=== PATIENT | male | born 1945 | race Hispanic/Latino ===

== ENCOUNTER → 2018-01-29 | Outpatient (CLI) | payer MEDICARE, BC ==
[~2018-01-29] MED LIST: ATENOLOL25 MG PO; BACLOFEN10 MG PO; BUSPIRONE HCL15 MG PO; CARISOPRODOL350 MG PO; CELEBREX200 MG PO; DEXILANT60 MG PO; DOXAZOSIN MESYLA8 MG PO; DOXYCYCLINE MO100 MG PO; GABAPENTIN300 MG PO; IMODIUM2 MG PO; LORAZEPAM2 MG PO; METOCLOPRAMIDE H5 MG PO; NORCO 10-325 T1 EACH PO; PAROXETINE HCL20 MG PO; PERCOCET 10-321 EACH PO; PLAVIX75 MG PO; RANITIDINE HCL300 MG PO; ROPINIROLE HCL4 MG PO; SERTRALINE HCL50 MG PO; SUCRALFATE1 GM PO; SULFAMETHOXAZO1 EAC1 PO; TERAZOSIN HCL1 MG PO; TIZANIDINE HCL4 MG PO; TRIAMTERENE PO; TRIAMTERENE-HC1 EAC2 PO; ULTRACET TABLE1 EACH PO; VASOTEC5 MG PO; ZOLOFT100 MG PO; ZOLPIDEM TARTRA10 MG PO
--- NOTE | 2018-01-29 11:15 | Diagnostic Imaging Report ---
PROCEDURE:URINARY BLADDER ULTRASOUND COMPARISON:None. INDICATIONS:OTHER SPECIFIED URINARY INCONTINENCE CONCLUSION: Please refer to the retroperitoneal ultrasound performed at the same date and time for full dictated report. Dictated by: Xavier Albert M.D. on 01/29/2018 at 11:17 Electronically approved by: Xavier Albert M.D. on 01/29/2018 at 11:17
--- NOTE | 2018-01-29 11:23 | Diagnostic Imaging Report ---
PROCEDURE:US RETROPERITONEAL ( KIDNEY ). COMPARISON:None available. INDICATIONS:URINARY INCONTINENCE TECHNIQUE: Collier-scale and color sonographic images of the bilateral kidneys and bladder where obtained in transverse and longitudinal planes. FINDINGS: RIGHT KIDNEY: 11.2 cm, cortex 1.6 cm Cysts: None. Solid masses: None. Stones: None. Hydronephrosis: None. Echogenicity: Normal. LEFT KIDNEY: 11.3 cm, cortex 1.3 cm Cysts: None. Solid masses: None. Stones: None. Hydronephrosis: None. Echogenicity: Normal. Bladder: Normal contour. Bilateral ureteral jets are visualized. Prevoid volume 51.9 cc. Post void volume 0 cc. Prostate: 3.9 x 2.4 x 2.8 cm. Volume 13.2 cc CONCLUSION: No acute sonographic abnormality. Dictated by: Xavier Albert M.D. on 01/29/2018 at 11:24 Electronically approved by: Xavier Albert M.D. on 01/29/2018 at 11:24
== END ==
LOC: US 09:16
PROVIDERS: ATTEND Family Medicine
DX: N39.498 Other specified urinary incontinence (principal)
CPT/HCPCS: 76770; 76857

== ENCOUNTER 2019-08-08 19:44 | Emergency (ER) | payer BC, MEDICARE, OTHER ==
[~2019-08-08] VITALS: Ht 172.7 cm; Wt 107.5 kg
--- OUTSIDE RECORDS SUMMARY | 2019-08-08 19:48 | XMS REPORT ---
[facility] Address Unknown Phone Unavailable Care Team Providers Care Cook Box Filler Name Role Phone KAMILLA LONGORIA Unavailable Unavailable Problems This patient has no known problems. Allergies, Adverse Reactions, Alerts This patient has no known allergies or adverse reactions. Medications This patient has no known medications. Results Test Description Test Time Test Comments Text Results Atomic Results Result Comments US PELVIC (NON OB) PERSAUD OR F/U [place] [address] Patient Name: ROCIO SEVERINO MR #: [id number] : 1945 Age/Sex: 72/M Req #: [id number] Adm Physician: Ordered by: KAMILLA LONGORIA MD Report #: [id number] Location: US Room/Bed: Procedure: [id number] US/US PELVIC (NON OB) PERSAUD OR F/U Exam Date: Exam Time: REPORT STATUS: Signed PROCEDURE: URINARY BLADDER ULTRASOUND COMPARISON: None. INDICATIONS: OTHER SPECIFIED URINARY INCONTINENCE CONCLUSION: Please refer to the retroperitoneal ultrasound performed at the same date and time for full dictated report. Dictated by: Celso Rice M.D. on 01/29/2018 at 11:17 Electronically approved by: Celso Rice M.D. on 01/29/2018 at 11:17 Dictated By: CELSO RICE MD 1117 Transcribed By: AMBER on 01/29/181116 COPY TO: KAMILLA LONGORIA MD US RENAL RETROPERITONEAL COMP [place] [address] Patient Name: ROCIO SEVERINO MR #: [id number] : 1945 Age/Sex: 72/M Req #: [id number] Adm Physician: Ordered by: KAMILLA LONGORIA MD Report #: [id number] Location: US Room/Bed: Procedure: [id number] US/US RENAL RETROPERITONEAL COMP Exam Date: Exam Time: REPORT STATUS: Signed PROCEDURE: US RETROPERITONEAL ( KIDNEY ). COMPARISON: None available. INDICATIONS: URINARY INCONTINENCE TECHNIQUE: Collier-scale and color sonographic images of the bilateral kidneys and bladder where obtained in transverse and longitudinal planes. FINDINGS: RIGHT KIDNEY: 11.2 cm, cortex 1.6 cm Cysts: None. Solid masses: None. Stones: None. Hydronephrosis: None. Echogenicity: Normal. LEFT KIDNEY: 11.3 cm, cortex 1.3 cm Cysts: None. Solid masses: None. Stones: None. Hydronephrosis: None. Echogenicity: Normal. Bladder: Normal contour. Bilateral ureteral jets are visualized. Prevoid volume 51.9 cc. Post void volume 0 cc. Prostate: 3.9 x 2.4 x 2.8 cm. Volume 13.2 cc CONCLUSION: No acute sonographic abnormality. Dictated by: Celso Rice M.D. on 01/29/2018 at 11:24 Electronically approved by: Celso Rice M.D. on 01/29/2018 at 11:24 Dictated By: CELSO RICE MD 23 Transcribed By: AMBER on 01/29/181123 COPY TO: KAMILLA LONGORIA MD
[2019-08-08] MEDS ORDERED: DIPHENHYDRAMINE HCL 25 MG CAP PO ONE (20:00)
[2019-08-08] MEDS ORDERED: DEXAMETHASONE SOD PHOS 10 MG/1 ML VIAL IM ONE (20:00)
[2019-08-08] MEDS ORDERED: FAMOTIDINE 20 MG TAB PO ONE (20:00)
[2019-08-08 20:25] VITALS: BP 148/89
== END 2019-08-08 20:26 | disposition home or self-care (01) ==
LOC: ER 19:44
DX: L23.9 Allergic contact dermatitis, unspecified cause (principal); K21.9 Gastro-esophageal reflux disease without esophagitis; F32.9 Major depressive disorder, single episode, unspecified
CPT/HCPCS: 99282; J1100

== ENCOUNTER 2020-02-24 15:10 | Emergency (ER) | payer MEDICARE ==
[~2020-02-24] VITALS: Ht 172.7 cm; Wt 107.5 kg
--- OUTSIDE RECORDS SUMMARY | 2020-02-24 15:14 | XMS REPORT | Continuity of Care Document ---
Author Author [facility] Address [address] [place] [address] [address] [place] [address] Phone Unavailable Care Team Providers Care Rn Private Duty Name Role Phone KAMILLA LONGORIA MD PCP KAMILLA LONGORIA Attphys Unavailable Payers Payer Name Policy Type Policy Number Effective Date Expiration Date [facility] [id number] 2014 00:00:00 [facility] Medicare A & B [id number] 2009 00:00:[address] [facility] Ppo [id number] [facility] Miscellaneous [facility] [id number] [facility] [id number] [facility] Problems Condition Name Condition Details Condition Category Status Onset Date Resolution Date Last Treatment Date Treating Clinician Comments Source Acute renal failure Acute renal failure Problem Active 2016-03-29 00:00 :00 [facility] Dehydration Dehydration Problem Active 2016-03-29 00:00:00 [facility] Diarrhea Diarrhea Problem Active 2016-03-29 00:00:00 [facility] Hyperkalemia Hyperkalemia Problem Active 2016-03-29 00:00:00 [facility] Rhabdomyolysis Rhabdomyolysis Problem Active 2016-03-29 00:00:00 [facility] Allergies, Adverse Reactions, Alerts This patient has no known allergies or adverse reactions. Medications Ordered Medication Name Filled Medication Name Start Date Stop Da te Current Medication? Ordering Clinician Indication Dosage Frequency Signature (SIG) Comments Components Source Atenolol 25 Mg Tablet Atenolol 25 Mg Tablet Yes 25 Bedtime [facility] Baclofen 10 Mg Tablet Baclofen 10 Mg Tablet Yes 10 Every 8 Hours [facility] Buspirone Hcl 15 Mg Tablet Buspirone Hcl 15 Mg Tablet Yes 7.5 Twice A Day [facility] Carisoprodol 350 Mg Tablet Carisoprodol 350 Mg Tablet Yes 350 Three Times A Day [facility] Clopidogrel Bisulfate (Plavix) 75 Mg Tablet Clopidogre l Bisulfate (Plavix) 75 Mg Tablet Yes 75 Daily [facility] Doxycycline Monohydrate 100 Mg Capsule Doxycycline Monohydrate 1 00 Mg Capsule Yes 100 Twice A Day [facility] Enalapril Maleate (Vasotec) 5 Mg Tab Enalapril Maleate (Vasotec) 5 Mg Tab Yes 5 Bedtime [facility] Gabapentin 300 Mg Capsule Gabapentin 300 Mg Capsule Yes 300 Twice A Day [facility] Loperamide Hcl (Imodium*) 2 Mg Cap Loperamide Hcl (Imodium*) 2 Mg Cap Yes 2 [facility] Lorazepam 2 Mg Tablet Lorazepam 2 Mg Tablet Yes 2 Twice A Day [facility] Oxycodone Hcl/Acetaminophen (Percocet 10-325 Mg Tablet ) 1 Each Tablet Oxycodone Hcl/Acetaminophen (Percocet 10-325 Mg Tablet) 1 Each Tablet Yes 1 Every 6 Hours [facility] Paroxetine Hcl 20 Mg Tablet Paroxetine Hcl 20 Mg Tablet Yes 20 Twice A Day [facility] Ranitidine Hcl 300 Mg Tablet Ranitidine Hcl 300 Mg Tablet Y es 300 Bedtime [facility] Ropinirole Hcl 4 Mg Tablet Ropinirole Hcl 4 Mg Tablet Yes 4 Bedtime [facility] Sertraline Hcl 50 Mg Tablet Sertraline Hcl 50 Mg Tablet Yes 50 Daily [facility] Sulfamethoxazole/Trimethoprim (Sulfamethoxazole-Tmp Ds Tablet) 1 Each Tablet Sulfamethoxazole/Trimethoprim (Sulfamethoxazole-Tmp Ds Tablet) 1 Each Tablet Yes 1 Twice A Day [facility] Terazosin Hcl 1 Mg Capsule Terazosin Hcl 1 Mg Capsule Yes 1 Daily [facility] Triamterene/Hydrochlorothiazid (Triamterene-Hctz 37.5- 25 Mg Cp) 1 Each Capsule Triamterene/Hydrochlorothiazid (Triamterene-Hctz 37.5-25 Mg Cp) 1 Each Capsule Yes 1 Daily [facility] Zolpidem Tartrate 10 Mg Tablet Zolpidem Tartrate 10 Mg Tablet Yes 10 Bedtime [facility] Celecoxib (Celebrex) 200 Mg Capsule, 200 Mg Oral Celec oxib (Celebrex) 200 Mg Capsule, 200 Mg Oral 2016-03-28 00:00:00 No 200 Jaky ry Other Day [facility] Dexlansoprazole (Dexilant) 60 Mg Cap., 60 Mg Oral Dexlansoprazole (Dexilant) 60 Mg Cap., 60 Mg Oral 2016-03-28 00:00:00 No 60 Three Times A Day [facility] Doxazosin Mesylate 8 Mg Tablet, 8 Mg Oral Doxazosin Me sylate 8 Mg Tablet, 8 Mg Oral 2016-03-28 00:00:00 No 8 Bedtime [facility] Hydrocodone Bit/Acetaminophen ([place] 10-325 Tablet) 1 Each Tablet, Oral Hydrocodone Bit/Acetaminophen ([place] 10-325 Tablet) 1 Each Tablet, Oral 2016-03-28 00:00:00 No As Needed [facility] Metoclopramide Hcl 5 Mg Tablet, 5 Mg Oral Metocloprami de Hcl 5 Mg Tablet, 5 Mg Oral 2016-03-28 00:00:00 No 5 Three Times A Day [facility] Sertraline Hcl (Zoloft) 100 Mg Tablet, 100 Mg Oral Ser traline Hcl (Zoloft) 100 Mg Tablet, 100 Mg Oral 2016-03-28 00:00:00 No 100 B edtime [facility] Sucralfate 1 Gm Tablet, 1 Gm Oral Sucralfate 1 Gm Tablet, 1 Gm O ral 2016-03-28 00:00:00 No 1 Every 6 Hours C [facility] Tizanidine Hcl 4 Mg Tablet, 4 Mg Oral Tizanidine Hcl 4 Mg Tablet , 4 Mg Oral 2016-03-28 00:00:00 No 4 As Needed [facility] Tramadol Hcl/Acetaminophen (Ultracet Tablet) 1 Each Ta blet, Oral Tramadol Hcl/Acetaminophen (Ultracet Tablet) 1 Each Tablet, Oral 20 07-04-06 00:00:00 No Every 4 Hours for Pain C [facility] Triamterene , 25 Mg Oral Triamterene , 25 Mg Oral 2016-03-28 00: 00:00 No 25 Every Other Day [facility] Procedures This patient has no known procedures. Encounters Start Date/Time End Date/Time [facility] ID Source 2019-08-08 19:44:00 2019-08-08 20:26:00 Departed Emergency Room [facility] [id number] [facility] Results Test Description Test Time Test Comments Results Result Comments Source US PELVIC (NON OB) PERSAUD OR F/U [place] [address] Patient Name: ROCIO SEVERINO MR #: [id number] : 1945 Age/Sex: 72/M Req #: [id number] Adm Physician: Ordered by: KAMILLA LONGORIA MD Report #: [id number] Location: US Room/Bed: Procedure: [id number] US/US PELVIC (NON OB) PERSAUD OR F/U [...] at 11:17 Dictated By: CELSO RICE MD 16 Transcribed By: AMBER on 01/29/18 1117 COPY TO: KAMILLA LONGORIA MD US RENAL RETROPERITONEAL COMP [place] [address] Patient Name: ROCIO SEVERINO MR #: [id number] : 1945 Age/Sex: 72/M Req #: [id number] Adm Physician: Ordered by: KAMILLA LONGORIA MD Report #: [id number] Location: US Room/Bed: Procedure: [id number] US/US RENAL RETROPERITONEAL COMP Exam Date: Exam [...] at 11:24 Dictated By: CELSO RICE MD 1124 Transcribed By: AMBER on 01/29/18 1124 COPY TO: KAMILLA LONGORIA MD
--- NOTE | 2020-02-24 19:07 | Diagnostic Imaging Report ---
Examination: CT BRAIN WO CONTRAST History:Fall with head injury. Comparison studies:None Technique: Axial images were obtained from the skull base to the vertex. Coronal and sagittal images reconstructed from the axial data. Dose modulation, iterative reconstruction, and/or weight based adjustment of the mA/kV was utilized to reduce the radiation dose to as low as reasonably achievable. Intravenous contrast: None Findings: Scalp: No abnormalities. Bones: No fractures, blastic or lytic lesions. Brain sulci: Appropriate for age. Ventricles: Normal in size and configuration. No hydrocephalus. Extra-axial space: No abnormalities. Parenchyma: There are patchy areas of hypoattenuation in the periventricular and subcortical white matter, nonspecific. No masses, hemorrhage, or acute or chronic cortical based vascular insults. Sellar/suprasellar region: No abnormalities. Craniocervical junction: Patent foramen magnum. No Chiari one malformation. Incidental findings: Atherosclerotic calcification of the cavernous and supraclinoid internal carotid arteries. Opacification of the right frontal and partially visualized right maxillary sinus. Impression: No acute intracranial abnormalities. Chronic microvascular ischemic change. Signed by: Dr. Rina Brothers M.D. on 02/24/2020 7:04 PM
--- NOTE | 2020-02-24 19:14 | Diagnostic Imaging Report ---
Examination: CT CERVICAL SPINE WO CONTRAST HISTORY:Neck injury and pain after fall. COMPARISON:None. TECHNIQUE: Multidetector helical axial images were obtained without contrast from the foramen magnum to T1. Coronal and sagittal reformatted images were done. Bone and soft tissue windows were evaluated. Dose modulation, iterative reconstruction, and/or weight based adjustment of the mA/kV was utilized to reduce the radiation dose to as low as reasonably achievable. FINDINGS: Alignment:Straightening of normal lordosis. Vertebrae: Normal height and density. No acute fracture, infection or neoplasm. Disc space heights: Narrowed from C4 through T1. Caliber of spinal canal: Developmentally normal. Posterior fossa and craniocervical junction: Foramen magnum patent. No Chiari 1 malformation. Soft tissues: No abnormality. Degenerative changes: Grade I anterolisthesis of C4 on C5 with left uncovertebral and facet arthropathy with severe left foraminal narrowing. C5-C6: Asymmetric to the right disc osteophyte complex and bilateral uncovertebral arthropathy with severe right and mild left neural foraminal narrowing. No canal stenosis. C6-C7: Asymmetric to the right disc osteophyte complex and bilateral uncovertebral arthropathy result in severe right and moderate left neural foraminal narrowing. No canal stenosis. The remaining cervical levels demonstrate no disc herniation or foraminal or canal stenosis. Visualized lung apices: No abnormalities. IMPRESSION: 1. No acute abnormalities. 2. Degenerative changes as above. Signed by: Dr. Rina Brothers M.D. on 02/24/2020 7:10 PM
--- NOTE | 2020-02-24 19:19 | Diagnostic Imaging Report ---
KNEE THREE VIEWS BILATERAL - 3 views HISTORY: Pain status post fall. COMPARISON: None available. FINDINGS: Bones: No acute displaced fracture. Osseous alignment is within normal limits. Sclerosis of the patella. Joints: Total right knee arthroplasty with femoral and tibial components in adequate position and alignment. Soft tissues: Trace suprapatellar fluid. IMPRESSION: No acute osseous abnormality. Signed by: Dr. Brandee Louie M.D. on 02/24/2020 7:15 PM
--- NOTE | 2020-02-24 19:21 | Diagnostic Imaging Report ---
EXAMINATION: CHEST SINGLE (NOT PORTABLE) INDICATION: Fall. COMPARISON: None available in PACS at this time. FINDINGS: TUBES and LINES: None. LUNGS: Lungs are not well inflated. Mild elevation of the left hemidiaphragm. There is no evidence of pneumonia or pulmonary edema. PLEURA: No pleural effusion or pneumothorax. Thickening of the minor fissure. HEART AND MEDIASTINUM: Cardiac size is moderately enlarged. There is widening of the mediastinum with unfolded aorta, which may be part magnification by portable technique. BONES AND SOFT TISSUES: No acute osseous lesion. Soft tissues are unremarkable. UPPER ABDOMEN: No free air under the diaphragm. IMPRESSION: Suboptimal inflation with low lung volumes bilaterally, particularly on the left. Widening of the mediastinum may be related to portable technique and suboptimal inflation. Consider chest pain and lateral views when patient's condition permits. Signed by: Dr. Brandee Louie M.D. on 02/24/2020 7:18 PM
--- NOTE | 2020-02-24 19:35 | Diagnostic Imaging Report ---
EXAM: CT Abdomen and Pelvis WITHOUT contrast INDICATION: Pain status post fall. COMPARISON: None. TECHNIQUE: Abdomen and pelvis were scanned utilizing a multidetector helical scanner from the lung base to the pubic symphysis without administration of IV contrast. Absence of intravenous contrast decreases sensitivity for detection of focal lesions and vascular pathology. Coronal and sagittal reformations were obtained. Routine protocol was performed. IV CONTRAST: None. ORAL CONTRAST: Water RADIATION DOSE: Total DLP: 2148.17 mGy*cm Estimated effective dose: (DLP x 0.015 x size factor) mSv COMPLICATIONS: None FINDINGS: LINES and TUBES: None. LOWER THORAX: There is bibasilar atelectasis. Elevation of the left hemidiaphragm. Coronary artery calcifications particularly of the LAD. HEPATOBILIARY: No focal hepatic lesions. No biliary ductal dilation. GALLBLADDER: Cholecystectomy. SPLEEN: No splenomegaly. PANCREAS: Diffuse atrophy. No focal masses or ductal dilatation. ADRENALS: No adrenal nodules KIDNEYS/URETERS: No hydronephrosis. No cystic or solid mass lesions. No stones. Peroneal a cortical calcification in the upper pole of the right kidney laterally. GI TRACT: No abnormal distention, wall thickening, or evidence of bowel obstruction. There are diverticula within the colon without evidence of diverticulitis. Appendix is normal. PELVIC ORGANS/BLADDER: Unremarkable. LYMPH NODES: No lymphadenopathy. VESSELS: There is mild atherosclerotic disease in the aorta and major arterial branches. PERITONEUM / RETROPERITONEUM: No free air or fluid. BONES: There are multilevel advanced degenerative changes in the imaged lower thoracic and lumbar spine. L4 hemangioma. Dextroscoliosis. SOFT TISSUES: Postoperative changes of the supra umbilical abdominal wall with mesh without evidence of hernia recurrence. IMPRESSION: 1. No acute traumatic injury in the abdomen and pelvis allowing for limitations of lack of contrast. Signed by: Dr. Brandee Louie M.D. on 02/24/2020 7:31 PM
--- NOTE | 2020-02-24 21:01 | Diagnostic Imaging Report ---
History: Fall yesterday Comparison studies: None Technique: Axial images were obtained from T12 through the sacrum. Coronal and sagittal images reconstructed from the axial data. Intravenous contrast: None Dose modulation, iterative reconstruction, and/or weight based adjustment of the mA/kV was utilized to reduce the radiation dose to as low as reasonably achievable. Findings: Number of non-rib bearing vertebral bodies: 5 Alignment: Normal lordosis. Dextroscoliosis centered at L3. Soft tissues: No paraspinal abnormalities. Atherosclerotic calcifications of the abdominal aorta and branches Paraspinal muscles: Fatty infiltration of the left paraspinal musculature secondary to mild atrophy on the left. Vertebrae: No acute fractures hemangioma occupying most of the L4 vertebral body. Chronic loss height at L2 and L3 vertebral bodies towards the left (less than 20%). Degenerative changes: L1-L2: Disc degeneration with obliterated intervertebral space, vacuum disc phenomenon, and L2 superior endplates Schmorl nodes. Asymmetric left disc bulge and left facet hypertrophy results in moderate canal stenosis and moderate left foraminal narrowing L2-L3: Disc degeneration with obliterated intervertebral space and vacuum disc phenomenon. Asymmetric left disc bulge and moderate left facet hypertrophy results in moderate canal stenosis, obliteration of the left subarticular recess, mild right and severe left foraminal narrowing. L3-L4: Disc degeneration with obliterated intervertebral space and vacuum disc phenomenon asymmetric left disc bulge, and moderate bilateral facet hypertrophy results in severe canal stenosis and moderate bilateral foraminal narrowing L4-L5: Disc degeneration with decreased intervertebral space and vacuum disc phenomenon. Diffuse disc bulge and severe facet hypertrophy results in moderate to severe canal stenosis, severe right and moderate left foraminal narrowing L5-S1: Disc degeneration with decreased intervertebral space and vacuum disc phenomenon diffuse disc bulge, severe right and moderate left facet hypertrophy results in moderate canal stenosis and severe right and moderate left foraminal narrowing. Sacroiliac joints: No degenerative changes. IMPRESSION: 1. No acute abnormality of the lumbar spine. 2. Severe degenerative changes of the lumbar spine results in moderate to severe canal stenosis and moderate to severe foraminal narrowing as described above. Signed by: DR Rodrigo Us M.D. on 02/24/2020 8:57 PM
[2020-02-24 21:17] VITALS: BP 142/72
--- NOTE | 2020-02-24 21:22 | Emergency Department Note ---
History of Present Illnes History of Present Illness Chief Complaint: Multiple Trauma History of Present Illness This is a 74 year old male presents with c/o aching all over after tripping and falling yesterday, c/o pain from head to his buttocks, no loc, no nausea, vomiting, states he tripped over a pair of shoes next to his bed . Historian: Patient Arrival Mode: Car Onset (how long ago): day(s) (1) Location: all over Quality: pain and aches Severity: moderate Onset quality: sudden Duration (how long): day(s) (1) Timing of current episode: constant Progression: unchanged Chronicity: new Context: recent illness, recent surgery Relieving factors: none Exacerbating factors: none Associated symptoms: denies other symptoms Past Medical/Family History Physician Review I have reviewed the patient's past medical and family history. Any updates have been documented here. Past Medical History Recent Fever: No Clinical Suspicion of Infectio: No New/Unexplained Change in Ment: No Past Medical History: Hypertension Other Medical History: GERD, DEPRESSION, OSMAN Past Surgical History: Cholecysctectomy, Knee Replacement, Hernia Repair, Back Surgery Social History Smoking Cessation: Never Smoker Alcohol Use: None Any Illegal Drug Use: No Other Last Tetanus: UTD Review of Systems Review of Systems Constitutional: no symptoms EENTM: no symptoms Cardiovascular: no symptoms Respiratory: no symptoms Gastrointestinal: no symptoms Genitourinary: no symptoms Musculoskeletal: as per HPI Neurological: no symptoms Psychological: no symptoms Endocrine: no symptoms Hematological/Lymphatic: no symptoms Review of other systems All other systems reviewed and negative. Physical Exam Related Data Allergies: Coded Allergies: No Known Drug Allergies (Verified Allergy, Unknown, 07/07/10) Triage Vital Signs Vital Signs Date Time Temp Pulse Resp B/P (MAP) Pulse Ox O2 Delivery O2 Flow Rate FiO2 02/24/20 15:54 98.4 62 16 109/64 94 Vital signs reviewed: Yes Physical Exam CONSTITUTIONAL Constitutional: well-developed, well-nourished HENT HENT: normocephalic, oropharynx clear/moist, nose normal, other (contusion to back of head) HENT L/R: left ext ear normal, right ext ear normal EYES Eyes: PERRL, conjunctivae normal NECK Neck: ROM normal, other (pain with rom of neck, bilateral paraspinal muscle tenderness) PULMONARY Pulmonary: effort normal, breath sounds normal CARDIOVASCULAR Cardiovascular: regular rhythm, heart sounds normal, capillary refill normal, normal rate GASTROINTESTINAL Abdominal: soft, nontender, bowel sounds normal GENITOURINARY Genitourinary: exam deferred SKIN Skin: warm, dry, other (bruises to legs and arms) MUSCULOSKELETAL Musculoskeletal: ROM normal, other (bilateral paraspinal pain to lower back with movement and palpation) NEUROLOGICAL Neurological: alert, oriented x 3, no gross motor or sensory deficits PSYCHOLOGICAL Psychological: mood/affect normal, judgement normal Results Imaging Imaging results reviewed: Yes Imaging Comments no acute findings on any of imaging studies, pt with lots of chronic degenerative changes Critical Care Time Subsequent provider I assumed direction of critical care for this patient from another provider of my specialty. Assessment & Plan Assessment & Plan Final Impression: (1) CONTUSION OF UNSPECIFIED PART OF HEAD, INITIAL ENCOUNTER (2) SPRAIN OF LIGAMENTS OF CERVICAL SPINE, INITIAL ENCOUNTER (3) STRAIN OF MUSCLE, FASCIA AND TENDON OF LOWER BACK, INIT Assessment & Plan pt with pain all over after fall yesterday, hit head not loc ct brain , ct c spine, ct l spine, ct abd/pelvis cxr, ordered to eval for fractures, intracranial abnormality no acute findings on imaging studies pt discharged home Depart Disposition: HOME, SELF-CARE Last Vital Signs Date Time Temp Pulse Resp B/P (MAP) Pulse Ox O2 Delivery O2 Flow Rate FiO2 02/24/20 15:54 98.4 62 16 109/64 94 Home Meds Reported Medications Triamterene/Hydrochlorothiazid (TRIAMTERENE-HCTZ 37.5-25 MG CP) 1 Each Capsule, 1 TAB PO DAILY 03/28/16 Loperamide Hcl* (IMODIUM*) 2 Mg Cap, 2 MG PO, CAP 03/28/16 Paroxetine Hcl (PAROXETINE HCL) 20 Mg Tablet, 20 MG PO BID, #30 TAB 03/28/16 Doxycycline Monohydrate (DOXYCYCLINE MONOHYDRATE) 100 Mg Capsule, 100 MG PO BID 03/28/16 Baclofen (BACLOFEN) 10 Mg Tablet, 10 MG PO Q8HR, #90 TAB 03/28/16 Sulfamethoxazole/Trimethoprim (SULFAMETHOXAZOLE-TMP DS TABLET) 1 Each Tablet, 1 TAB PO BID 03/28/16 Carisoprodol (CARISOPRODOL) 350 Mg Tablet, 350 MG PO TID 03/28/16 Sertraline Hcl (SERTRALINE HCL) 50 Mg Tablet, 50 MG PO DAILY, #30 TAB 03/28/16 Terazosin Hcl (TERAZOSIN HCL) 1 Mg Capsule, 1 MG PO DAILY, #30 CAP 03/28/16 Gabapentin (GABAPENTIN) 300 Mg Capsule, 300 MG PO BID, #60 CAP 03/28/16 Oxycodone Hcl/Acetaminophen (PERCOCET 10-325 MG TABLET) 1 Each Tablet, 1 TAB PO Q6HR 03/28/16 Buspirone Hcl (BUSPIRONE HCL) 15 Mg Tablet, 7.5 MG PO BID 12/31/14 Enalapril Maleate (VASOTEC) 5 Mg Tab, 5 MG PO HS, TAB 12/31/14 Zolpidem Tartrate (ZOLPIDEM TARTRATE) 10 Mg Tablet, 10 MG PO BEDTIME, TAB 12/31/14 Atenolol (ATENOLOL) 25 Mg Tablet, 25 MG PO HS 12/31/14 Ropinirole Hcl (ROPINIROLE HCL) 4 Mg Tablet, 4 MG PO HS 12/31/14 Ranitidine Hcl (RANITIDINE HCL) 300 Mg Tablet, 300 MG PO HS 12/31/14 Clopidogrel Bisulfate* (PLAVIX) 75 Mg Tablet, 75 MG PO DAILY, TAB 12/31/14 Lorazepam (LORAZEPAM) 2 Mg Tablet, 2 MG PO BID 12/31/14 TONY LARA MD Feb 24, 2020 21:22
== END 2020-02-24 21:17 | disposition home or self-care (01) ==
LOC: ER 15:10
DX: S00.83XA Contusion of other part of head, initial encounter (principal); S13.4XXA Sprain of ligaments of cervical spine, initial encounter; S39.012A Strain of muscle, fascia and tendon of lower back, initial encounter; W01.0XXA Fall on same level from slipping, tripping and stumbling without subsequent striking against object, initial encounter; Y92.003 Bedroom of unspecified non-institutional (private) residence as the place of occurrence of the external cause; I10 Essential (primary) hypertension; K21.9 Gastro-esophageal reflux disease without esophagitis; F32.9 Major depressive disorder, single episode, unspecified
CPT/HCPCS: 70450; 71045; 72125; 72131; 72192; 74176; 99283

== ENCOUNTER → 2020-07-29 | Outpatient (CLI) | payer MEDICARE ==
--- NOTE | 2020-07-29 14:23 | Diagnostic Imaging Report ---
EXAM: US ABDOMEN COMPLETE DATE: 07/29/2020 12:37 PM INDICATION: Right upper quadrant pain COMPARISON: CT abdomen and pelvis of 02/24/2020 TECHNIQUE: Transverse and longitudinal galvez scale and color doppler sonographic images of the upper abdomen were obtained. FINDINGS: LIVER 18.3 cm in the right midclavicular line. Normal echogenicity of the liver with mildly nodular surface contour, no masses. SPLEEN 11.2 cm in maximum diameter. Normal echogenicity, no masses. GALLBLADDER Status post cholecystectomy. BILE DUCTS No intra nor extra-hepatic biliary dilation. Common bile duct measures 5mm PANCREAS: Visualized portions are normal. RIGHT KIDNEY: 10.7 cm Echogenicity: Normal Collecting System: No hydronephrosis Stones: None Cyst/Mass: None LEFT KIDNEY: 10.7 cm Echogenicity: Normal Collecting System: No hydronephrosis Stones: None Cyst/Mass: None VESSELS: Aorta: Visualized portions are within normal size limits Inferior Vena Cava: Visualized portions are normal Main Portal Vein: 0.8 cm, normal size with hepatopetal flow. FREE FLUID: None IMPRESSION: Nodular liver surface contour compatible with hepatic cirrhosis. Mild hepatomegaly. Status post cholecystectomy. Signed by: Enriqueta Malone MD on 07/29/2020 2:20 PM
--- NOTE | 2020-07-29 14:29 | Diagnostic Imaging Report ---
EXAM: US ABDOMEN COMPLETE DATE: 07/29/2020 12:37 PM INDICATION: Right upper quadrant pain COMPARISON: CT abdomen and pelvis of 02/24/2020 TECHNIQUE: Transverse and longitudinal galvez scale and color doppler sonographic images of the upper abdomen were obtained. FINDINGS: LIVER 18.3 cm in the right midclavicular line. Normal echogenicity of the liver with mildly nodular surface contour, no masses. SPLEEN 11.2 cm in maximum diameter. Normal echogenicity, no masses. GALLBLADDER Status post cholecystectomy. BILE DUCTS No intra nor extra-hepatic biliary dilation. Common bile duct measures 5mm PANCREAS: Visualized portions are normal. RIGHT KIDNEY: 10.7 cm Echogenicity: Normal Collecting System: No hydronephrosis Stones: None Cyst/Mass: None LEFT KIDNEY: 10.7 cm Echogenicity: Normal Collecting System: No hydronephrosis Stones: None Cyst/Mass: None VESSELS: Aorta: Visualized portions are within normal size limits Inferior Vena Cava: Visualized portions are normal Main Portal Vein: 0.8 cm, normal size with hepatopetal flow. BLADDER: No mass or calculi. Right ureteral jet seen. Pre-void volume estimate of 91cc. Postvoid volume estimate of 35cc. The prostate appears unremarkable. FREE FLUID: None IMPRESSION: Nodular liver surface contour compatible with hepatic cirrhosis. Mild hepatomegaly. Pre and postvoid bladder volume as above. Status post cholecystectomy. Signed by: Enriqueta Malone MD on 07/29/2020 2:26 PM
== END ==
LOC: US 12:16
PROVIDERS: ATTEND Family Medicine
DX: R10.11 Right upper quadrant pain (principal); Z79.899 Other long term (current) drug therapy
CPT/HCPCS: 76700; 76857

== ENCOUNTER 2021-04-02 22:30 | Inpatient (IN) | payer MEDICARE, OTHER ==
[~2021-04-02] VITALS: Ht 172.7 cm; Wt 104.3 kg
[2021-04-02] MEDS ORDERED: SODIUM CHLORIDE 0.9% 1000ML 1,000 ML IV ONE (23:30)
[2021-04-02] MEDS ORDERED: SODIUM CHLORIDE 0.9% 1000ML 1,000 ML ONE (23:36)
[2021-04-02 23:47] LABS: BASOPHILS % 0.4 % (0.0-1.0); EOSINOPHILS # (AUTO) 0.1 (0.0-0.4); EOSINOPHILS % 1.8 % (0.0-6.0); HEMATOCRIT 37.1 % (38.2-49.6); HEMOGLOBIN 11.5 g/dL (14.0-18.0); LYMPHOCYTES # (AUTO) 0.8 (1.0-3.2); LYMPHOCYTES % 10.7 % (18.0-39.1); MEAN CORPUSCULAR HEMOGLOBIN 30.6 pg (28-32); MEAN CORPUSCULAR VOLUME 98.7 fL (81-99); MONOCYTES # (AUTO) 0.6 (0.2-0.8); MONOCYTES % 7.8 % (4.4-11.3); NEUTROPHILS # (AUTO) 5.6 (2.1-6.9); PLATELET COUNT 178 x10e3/uL (140-360); RED BLOOD COUNT 3.76 x10e6/uL (4.3-5.7); RED CELL DISTRIBUTION WIDTH 14.2 % (11.7-14.4)
[2021-04-03] VITALS (7 sets, daily range): BP systolic 133–153; BP diastolic 74–87
[2021-04-03 00:06] LABS: ALBUMIN 3.9 g/dL (3.5-5.0); ALBUMIN/GLOBULIN RATIO 1.4 (0.8-2.0); ANION GAP 21.3 mmol/L (8-16); CALCIUM 8.2 mg/dL (8.4-10.2); CREATININE, SERUM 2.57 mg/dL (0.72-1.25); POTASSIUM 4.3 mmol/L (3.5-5.1)
[2021-04-03 00:12] LABS: CREATINE KINASE MB 25.3 ng/mL (0-5.0)
[2021-04-03 01:45] LABS: CLARITY,URINE CLOUDY (CLEAR); COLOR,URINE YELLOW (YELLOW); LEUKOCYTE ESTERASE ,URINE NEGATIVE (NEGATIVE); NITRITE,URINE NEGATIVE (NEGATIVE); PROTEIN,URINE DIPSTICK 1+ (NEGATIVE)
[2021-04-03 01:46] LABS: KETONES,URINE 1+ (NEGATIVE); URINE UROBILINOGEN 0.2 mg/dL (0.2 - 1)
[2021-04-03 01:49] LABS: BACTERIA,URINE MANY /HPF; EPITHELIAL CELLS,URINE FEW /LPF; RBC,URINE 0-5 /HPF (0-5); TRANSITIONAL EPI CELLS,URINE FEW; WBC,URINE (MAN) 21-50 /HPF (0-5)
[2021-04-03 01:50] LABS: HYALINE CASTS >15 (0-1); MUCUS,URINE MODERATE (RARE)
[2021-04-03] MEDS: CEFTRIAXONE 1 GM in SODIUM CHLORIDE 0.9% 50ML 50 ML IV SCH ×2 (02:34→21:08)
[2021-04-03] MEDS: SODIUM CHLORIDE 0.9% 1000ML 1,000 ML IV SCH ×2 (02:34→09:11)
[2021-04-03 06:20] LABS: CREATINE KINASE MB 18.3 ng/mL (0-5.0)
[2021-04-03] MEDS: CLOPIDOGREL BISULFATE 75 MG TAB PO SCH (08:54)
[2021-04-03] MEDS: TERAZOSIN HCL 1 MG CAP PO SCH (08:54)
[2021-04-03] MEDS ORDERED: MORPHINE SULFAT15 M1 PO (09:09)
[2021-04-03] MEDS ORDERED: GABAPENTIN600 MG PO (09:09)
[2021-04-03] MEDS ORDERED: SERTRALINE HCL100 MG PO (09:09)
[2021-04-03] MEDS ORDERED: FAMOTIDINE40 MG PO (09:09)
[2021-04-03] MEDS ORDERED: XTAMPZA ER9 MG PO (09:09)
[2021-04-03] MEDS ORDERED: FLUTICASONE PRO16 GM NS (09:09)
[2021-04-03] MEDS ORDERED: OXYCODONE-ACET1 EAC3 PO (09:09)
[2021-04-03 10:29] LABS: CREATINE KINASE MB 15.8 ng/mL (0-5.0)
[2021-04-03] MEDS: SODIUM BICARBONATE 8.4% SYRING 150 ML in DEXTROSE 5% 1,000 ML IV SCH (12:00)
[2021-04-03 12:29] LABS: ANION GAP 13.3 mmol/L (8-16); CALCIUM 8.2 mg/dL (8.4-10.2); CREATININE, SERUM 1.52 mg/dL (0.72-1.25); POTASSIUM 4.3 mmol/L (3.5-5.1)
[2021-04-03] MEDS ORDERED: ROPINIROLE HCL1 MG PO (12:56)
[2021-04-03] MEDS ORDERED: VASOTEC5 MG PO (13:12)
[2021-04-03] MEDS ORDERED: BACLOFEN10 MG PO (13:12)
[2021-04-03] MEDS ORDERED: BUSPIRONE HCL5 MG PO (13:12)
[2021-04-03] MEDS ORDERED: ATENOLOL50 MG PO (13:12)
[2021-04-03 19:03] LABS: CREATINE KINASE MB 10.8 ng/mL (0-5.0)
[2021-04-03] MEDS: ONDANSETRON HCL INJ 2MG/ML 2ML 2 MG/ML VIAL IV PRN (22:02)
[2021-04-03] MEDS: HYDROCODONE/APAP 10MG-325MG TAB PO PRN (22:02)
[2021-04-04] VITALS (8 sets, daily range): BP systolic 140–159; BP diastolic 71–89
[2021-04-04] MEDS: HYDROCODONE/APAP 10MG-325MG TAB PO PRN ×3 (03:15→16:55)
[2021-04-04] MEDS: ONDANSETRON HCL INJ 2MG/ML 2ML 2 MG/ML VIAL IV PRN ×2 (03:15→09:33)
[2021-04-04] MEDS ORDERED: ZOLPIDEM TARTRATE 5 MG TAB PO PRN (04:45)
[2021-04-04] MEDS: SODIUM BICARBONATE 8.4% SYRING 150 ML in DEXTROSE 5% 1,000 ML IV SCH (05:20)
[2021-04-04] MEDS: PANTOPRAZOLE SOD 40 MG TABEC PO SCH ×2 (05:28→16:00)
[2021-04-04 05:49] LABS: BASOPHILS % 0.5 % (0.0-1.0); EOSINOPHILS # (AUTO) 0.1 (0.0-0.4); EOSINOPHILS % 3.1 % (0.0-6.0); HEMATOCRIT 31.7 % (38.2-49.6); HEMOGLOBIN 10.3 g/dL (14.0-18.0); LYMPHOCYTES # (AUTO) 0.6 (1.0-3.2); LYMPHOCYTES % 16.1 % (18.0-39.1); MEAN CORPUSCULAR HEMOGLOBIN 30.7 pg (28-32); MEAN CORPUSCULAR HGB CONC 32.5 g/dL (31-35); MEAN CORPUSCULAR VOLUME 94.6 fL (81-99); MONOCYTES # (AUTO) 0.3 (0.2-0.8); MONOCYTES % 8.8 % (4.4-11.3); NEUTROPHILS # (AUTO) 2.8 (2.1-6.9); NEUTROPHILS % 71.2 % (38.7-80.0); PLATELET COUNT 138 x10e3/uL (140-360); RED BLOOD COUNT 3.35 x10e6/uL (4.3-5.7); RED CELL DISTRIBUTION WIDTH 13.8 % (11.7-14.4)
[2021-04-04 06:04] LABS: ALBUMIN 3.2 g/dL (3.5-5.0); ALBUMIN/GLOBULIN RATIO 1.2 (0.8-2.0); ANION GAP 11.4 mmol/L (8-16); CALCIUM 7.9 mg/dL (8.4-10.2); CREATININE, SERUM 0.98 mg/dL (0.72-1.25); POTASSIUM 3.4 mmol/L (3.5-5.1)
[2021-04-04] MEDS: CLOPIDOGREL BISULFATE 75 MG TAB PO SCH (08:31)
[2021-04-04] MEDS: TERAZOSIN HCL 1 MG CAP PO SCH (08:31)
[2021-04-04] MEDS ORDERED: POTASSIUM CHLORIDE 20 MEQ TAB CR PO NR (10:00)
[2021-04-04] MEDS: SODIUM CHLORIDE 0.9% 1000ML 1,000 ML IV SCH (10:08)
[2021-04-04] MEDS: ALPRAZOLAM 0.25 MG TAB PO PRN (19:18)
[2021-04-04] MEDS: CEFTRIAXONE 1 GM in SODIUM CHLORIDE 0.9% 50ML 50 ML IV SCH (21:05)
[2021-04-05 00:33] VITALS: BP 165/82
[2021-04-05] MEDS: ALPRAZOLAM 0.25 MG TAB PO PRN (01:20)
[2021-04-05] MEDS: SODIUM CHLORIDE 0.9% 1000ML 1,000 ML IV SCH (02:25)
[2021-04-05] MEDS: HYDROCODONE/APAP 10MG-325MG TAB PO PRN (03:35)
[2021-04-05 05:15] LABS: BASOPHILS % 0.2 % (0.0-1.0); EOSINOPHILS # (AUTO) 0.1 (0.0-0.4); EOSINOPHILS % 1.6 % (0.0-6.0); HEMOGLOBIN 10.8 g/dL (14.0-18.0); LYMPHOCYTES # (AUTO) 0.6 (1.0-3.2); LYMPHOCYTES % 14.1 % (18.0-39.1); MEAN CORPUSCULAR HEMOGLOBIN 30.6 pg (28-32); MEAN CORPUSCULAR HGB CONC 32.7 g/dL (31-35); MEAN CORPUSCULAR VOLUME 93.5 fL (81-99); MONOCYTES # (AUTO) 0.4 (0.2-0.8); MONOCYTES % 9.1 % (4.4-11.3); NEUTROPHILS # (AUTO) 3.3 (2.1-6.9); NEUTROPHILS % 74.5 % (38.7-80.0); PLATELET COUNT 146 x10e3/uL (140-360); RED BLOOD COUNT 3.53 x10e6/uL (4.3-5.7); RED CELL DISTRIBUTION WIDTH 13.5 % (11.7-14.4)
[2021-04-05 05:35] LABS: ANION GAP 15.5 mmol/L (8-16); CALCIUM 7.9 mg/dL (8.4-10.2); CREATININE, SERUM 0.8 mg/dL (0.72-1.25); POTASSIUM 3.5 mmol/L (3.5-5.1)
[2021-04-05 05:51] VITALS: BP 120/58
[2021-04-05] MEDS: PANTOPRAZOLE SOD 40 MG TABEC PO SCH (06:15)
[2021-04-05 07:48] VITALS: BP 173/93
[2021-04-05] MEDS: TERAZOSIN HCL 1 MG CAP PO SCH (08:21)
[2021-04-05] MEDS: CLOPIDOGREL BISULFATE 75 MG TAB PO SCH (08:21)
[2021-04-05] MEDS ORDERED: MACROBID 100 M100 MG PO (10:34)
[2021-04-05 11:00] VITALS: BP 154/83
== END 2021-04-05 11:05 | disposition home health service (06) | DRG 682 ==
LOC: ER 23:10 → ERHOLD 04-03 01:46 → MED/SURG 04-03 09:29
PROVIDERS: ADMIT Internal Medicine; ATTEND Internal Medicine
DX: N17.9 Acute kidney failure, unspecified (principal); G92 Toxic encephalopathy; M62.82 Rhabdomyolysis; N39.0 Urinary tract infection, site not specified; Z91.81 History of falling; W18.39XA Other fall on same level, initial encounter; N40.0 Benign prostatic hyperplasia without lower urinary tract symptoms; I10 Essential (primary) hypertension; Z86.73 Personal history of transient ischemic attack (TIA), and cerebral infarction without residual deficits; M17.11 Unilateral primary osteoarthritis, right knee; Z96.651 Presence of right artificial knee joint; D64.9 Anemia, unspecified; E86.0 Dehydration; I12.9 Hypertensive chronic kidney disease with stage 1 through stage 4 chronic kidney disease, or unspecified chronic kidney disease; N18.9 Chronic kidney disease, unspecified; Z20.822 Contact with and (suspected) exposure to COVID-19
CPT/HCPCS: 36415; 70450; 71045; 76770; 80048; 80053; 81001; 82140; 82550; 82553; 82948; 83735; 84484; 85025; 87086; 93005; 93306; 99284; J0696; J2405; J7030; J7070; U0002

== ENCOUNTER 2021-05-04 11:56 | Emergency (ER) | payer MEDICARE ==
[~2021-05-04] VITALS: Ht 172.7 cm; Wt 104.3 kg
[~2021-05-04 11:56] MED LIST changes: +ATENOLOL50 MG PO; +BUSPIRONE HCL5 MG PO; +FAMOTIDINE40 MG PO; +FLUTICASONE PRO16 GM NS; +GABAPENTIN600 MG PO; +MACROBID 100 M100 MG PO; +MORPHINE SULFAT15 M1 PO; +OXYCODONE-ACET1 EAC3 PO; +ROPINIROLE HCL1 MG PO; +SERTRALINE HCL100 MG PO; +XTAMPZA ER9 MG PO
[2021-05-04 13:37] LABS: CLARITY,URINE HAZY (CLEAR); COLOR,URINE YELLOW (YELLOW); KETONES,URINE TRACE (NEGATIVE); LEUKOCYTE ESTERASE ,URINE NEGATIVE (NEGATIVE); NITRITE,URINE NEGATIVE (NEGATIVE); PROTEIN,URINE DIPSTICK 2+ (NEGATIVE)
[2021-05-04 13:38] LABS: URINE UROBILINOGEN 0.2 mg/dL (0.2 - 1)
[2021-05-04 13:49] LABS: BACTERIA,URINE FEW /HPF; EPITHELIAL CELLS,URINE FEW /LPF
[2021-05-04 14:03] LABS: BASOPHILS % 0.6 % (0.0-1.0); EOSINOPHILS # (AUTO) 0.4 (0.0-0.4); EOSINOPHILS % 7.7 % (0.0-6.0); HEMATOCRIT 38.7 % (38.2-49.6); LYMPHOCYTES # (AUTO) 1.3 (1.0-3.2); LYMPHOCYTES % 24.5 % (18.0-39.1); MEAN CORPUSCULAR VOLUME 96.8 fL (81-99); MONOCYTES # (AUTO) 0.5 (0.2-0.8); MONOCYTES % 9.2 % (4.4-11.3); NEUTROPHILS # (AUTO) 3.1 (2.1-6.9); NEUTROPHILS % 57.8 % (38.7-80.0); PLATELET COUNT 209 x10e3/uL (140-360); RED CELL DISTRIBUTION WIDTH 13.9 % (11.7-14.4)
[2021-05-04 14:07] LABS: INR 0.98; PROTHROMBIN TIME 13.2 seconds (11.9-14.5)
[2021-05-04 14:08] LABS: PARTIAL THROMBOPLASTIN TIME 24.7 seconds (23.8-35.5)
[2021-05-04 14:14] LABS: ALBUMIN 3.6 g/dL (3.5-5.0); ALBUMIN/GLOBULIN RATIO 1.2 (0.8-2.0); ANION GAP 13.8 mmol/L (8-16); CALCIUM 8.5 mg/dL (8.4-10.2); CREATININE, SERUM 1.24 mg/dL (0.72-1.25); POTASSIUM 3.8 mmol/L (3.5-5.1)
== END 2021-05-04 15:09 | disposition home or self-care (01) ==
LOC: ER 13:23
DX: N39.0 Urinary tract infection, site not specified (principal); R41.0 Disorientation, unspecified
CPT/HCPCS: 36415; 70450; 71045; 80053; 81001; 85025; 85610; 85730; 99284

== ENCOUNTER 2021-09-06 11:03 | Emergency (ER) | payer MEDICARE, OTHER ==
[~2021-09-06] VITALS: Ht 172.7 cm; Wt 97.5 kg
[2021-09-06 12:34] LABS: BASOPHILS % 0.6 % (0.0-1.0); EOSINOPHILS # (AUTO) 0.2 (0.0-0.4); HEMATOCRIT 39.7 % (38.2-49.6); HEMOGLOBIN 12.4 g/dL (14.0-18.0); LYMPHOCYTES # (AUTO) 0.6 (1.0-3.2); LYMPHOCYTES % 11.6 % (18.0-39.1); MEAN CORPUSCULAR HEMOGLOBIN 29.5 pg (28-32); MEAN CORPUSCULAR HGB CONC 31.2 g/dL (31-35); MEAN CORPUSCULAR VOLUME 94.3 fL (81-99); MONOCYTES # (AUTO) 0.3 (0.2-0.8); MONOCYTES % 5.8 % (4.4-11.3); NEUTROPHILS # (AUTO) 4.2 (2.1-6.9); NEUTROPHILS % 78.6 % (38.7-80.0); PLATELET COUNT 179 x10e3/uL (140-360); RED BLOOD COUNT 4.21 x10e6/uL (4.3-5.7); RED CELL DISTRIBUTION WIDTH 13.8 % (11.7-14.4)
[2021-09-06 12:52] LABS: ALBUMIN 3.8 g/dL (3.5-5.0); ALBUMIN/GLOBULIN RATIO 1.2 (0.8-2.0); ALKALINE PHOSPHATASE 123 IU/L (40-150); ANION GAP 12.8 mmol/L (8-16); BLOOD UREA NITROGEN 21 mg/dL (7-26); BUN/CREATININE RATIO 18 (6-25); CALCIUM 8.6 mg/dL (8.4-10.2); CARBON DIOXIDE 26 mmol/L (22-29); CHLORIDE 108 mmol/L (98-107); CREATINE KINASE 149 IU/L (30-200); CREATININE, SERUM 1.16 mg/dL (0.72-1.25); EST GLOMERULAR FILTRATION RATE 61 ML/MIN (60-); GLUCOSE 87 mg/dL (74-118); POTASSIUM 3.8 mmol/L (3.5-5.1); SODIUM 143 mmol/L (136-145)
[2021-09-06 12:58] LABS: ALANINE AMINOTRANSFERASE < 6 IU/L (0-55)
[2021-09-06 16:08] LABS: CLARITY,URINE SL CLOUDY (CLEAR); COLOR,URINE AMBER (YELLOW); KETONES,URINE TRACE (NEGATIVE); LEUKOCYTE ESTERASE ,URINE NEGATIVE (NEGATIVE); NITRITE,URINE NEGATIVE (NEGATIVE); PROTEIN,URINE DIPSTICK 1+ (NEGATIVE); URINE UROBILINOGEN 0.2 mg/dL (0.2 - 1)
[2021-09-06 16:10] LABS: AMPHETAMINES SCREEN,URINE NEGATIVE (NEGATIVE); BENZODIAZEPINES SCREEN,URINE NEGATIVE (NEGATIVE); PHENCYCLIDINE SCREEN,URINE NEGATIVE (NEGATIVE)
[2021-09-06 16:22] LABS: BACTERIA,URINE MODERATE /HPF; RBC,URINE 0-5 /HPF (0-5)
[2021-09-06 17:15] VITALS: BP 153/85
== END 2021-09-06 17:05 | disposition home or self-care (01) ==
LOC: ER 13:31
DX: S80.02XA Contusion of left knee, initial encounter (principal); S50.02XA Contusion of left elbow, initial encounter; M25.512 Pain in left shoulder; M54.2 Cervicalgia; W01.0XXA Fall on same level from slipping, tripping and stumbling without subsequent striking against object, initial encounter; Y93.01 Activity, walking, marching and hiking; Y92.008 Other place in unspecified non-institutional (private) residence as the place of occurrence of the external cause; I10 Essential (primary) hypertension; K21.9 Gastro-esophageal reflux disease without esophagitis; F32.A Depression, unspecified
CPT/HCPCS: 36415; 70450; 72125; 80053; 80307; 81001; 82550; 82553; 84484; 85025; 87086; 99284

== ENCOUNTER 2021-09-09 20:32 | Inpatient (IN) | payer MEDICARE, OTHER ==
[~2021-09-09] VITALS: Ht 172.7 cm; Wt 97.5 kg
[2021-09-09] MEDS: SODIUM CHLORIDE 0.9% 1000ML 1,000 ML IV SCH (01:20)
[2021-09-09 20:48] LABS: BASOPHILS % 0.3 % (0.0-1.0); HEMATOCRIT 39.3 % (38.2-49.6); HEMOGLOBIN 12.5 g/dL (14.0-18.0); LYMPHOCYTES # (AUTO) 0.6 (1.0-3.2); LYMPHOCYTES % 10.8 % (18.0-39.1); MEAN CORPUSCULAR HEMOGLOBIN 29.1 pg (28-32); MEAN CORPUSCULAR HGB CONC 31.8 g/dL (31-35); MEAN CORPUSCULAR VOLUME 91.4 fL (81-99); MONOCYTES # (AUTO) 0.3 (0.2-0.8); MONOCYTES % 4.3 % (4.4-11.3); NEUTROPHILS # (AUTO) 4.9 (2.1-6.9); NEUTROPHILS % 84.3 % (38.7-80.0); PLATELET COUNT 191 x10e3/uL (140-360); RED CELL DISTRIBUTION WIDTH 13.8 % (11.7-14.4)
[2021-09-09 21:05] LABS: ANION GAP 21.5 mmol/L (8-16); CALCIUM 8.8 mg/dL (8.4-10.2); CREATININE, SERUM 1.07 mg/dL (0.72-1.25); POTASSIUM 3.5 mmol/L (3.5-5.1)
[2021-09-09 21:25] LABS: CREATINE KINASE MB 13.5 ng/mL (0-5.0)
[2021-09-09 21:51] LABS: CLARITY,URINE HAZY (CLEAR); COLOR,URINE YELLOW (YELLOW); KETONES,URINE >=160 (NEGATIVE); LEUKOCYTE ESTERASE ,URINE NEGATIVE (NEGATIVE); NITRITE,URINE NEGATIVE (NEGATIVE); PROTEIN,URINE DIPSTICK 2+ (NEGATIVE); URINE UROBILINOGEN 0.2 mg/dL (0.2 - 1)
[2021-09-09 21:52] LABS: BACTERIA,URINE FEW /HPF; EPITHELIAL CELLS,URINE FEW /LPF; WBC,URINE (MAN) 0-5 /HPF (0-5)
[2021-09-09] MEDS: ONDANSETRON HCL INJ 2MG/ML 2ML 2 MG/ML VIAL IV PRN (23:54)
[2021-09-10] VITALS (10 sets, daily range): BP systolic 135–161; BP diastolic 61–81
[2021-09-10] MEDS: SODIUM CHLORIDE 0.9% 1000ML 1,000 ML IV SCH ×3 (05:35→22:12)
[2021-09-10 07:14] LABS: BASOPHILS % 0.2 % (0.0-1.0); HEMATOCRIT 35.9 % (38.2-49.6); HEMOGLOBIN 11.5 g/dL (14.0-18.0); LYMPHOCYTES # (AUTO) 0.8 (1.0-3.2); LYMPHOCYTES % 13.1 % (18.0-39.1); MEAN CORPUSCULAR VOLUME 90.7 fL (81-99); MONOCYTES # (AUTO) 0.5 (0.2-0.8); MONOCYTES % 7.9 % (4.4-11.3); NEUTROPHILS # (AUTO) 4.8 (2.1-6.9); NEUTROPHILS % 78.6 % (38.7-80.0); PLATELET COUNT 189 x10e3/uL (140-360); RED BLOOD COUNT 3.96 x10e6/uL (4.3-5.7); RED CELL DISTRIBUTION WIDTH 13.7 % (11.7-14.4)
[2021-09-10 07:41] LABS: CREATINE KINASE MB 11.3 ng/mL (0-5.0)
[2021-09-10 07:57] LABS: ALBUMIN 3.6 g/dL (3.5-5.0); ALBUMIN/GLOBULIN RATIO 1.1 (0.8-2.0); ANION GAP 21.5 mmol/L (8-16); CALCIUM 9.9 mg/dL (8.4-10.2); CREATININE, SERUM 1.07 mg/dL (0.72-1.25); POTASSIUM 3.5 mmol/L (3.5-5.1)
[2021-09-10] MEDS: ATENOLOL 50 MG TAB PO SCH (09:00)
[2021-09-10] MEDS: GABAPENTIN 300 MG CAP PO SCH ×3 (09:00→20:57)
[2021-09-10] MEDS: CLOPIDOGREL BISULFATE 75 MG TAB PO SCH (09:00)
[2021-09-10] MEDS: FAMOTIDINE 20 MG TAB PO SCH (09:00)
[2021-09-10] MEDS: ENALAPRIL MALEATE 5 MG TAB PO SCH (09:00)
[2021-09-10] MEDS: TERAZOSIN HCL 1 MG CAP PO SCH (09:00)
[2021-09-10] MEDS: SERTRALINE HCL 100 MG TAB PO SCH (09:00)
[2021-09-10] MEDS: BUSPIRONE HCL 5 MG TAB PO SCH ×4 (09:36→20:56)
[2021-09-10 16:09] LABS: CREATINE KINASE MB 9.7 ng/mL (0-5.0)
[2021-09-10] MEDS: ROPINIROLE HCL 1 MG TAB PO SCH (20:57)
[2021-09-10] MEDS: ONDANSETRON HCL INJ 2MG/ML 2ML 2 MG/ML VIAL IV PRN (22:37)
[2021-09-11] VITALS (9 sets, daily range): BP systolic 134–158; BP diastolic 71–83
[2021-09-11] MEDS: SODIUM CHLORIDE 0.9% 1000ML 1,000 ML IV SCH ×2 (05:35→13:53)
[2021-09-11 05:42] LABS: ALBUMIN 3.4 g/dL (3.5-5.0); ALBUMIN/GLOBULIN RATIO 1.2 (0.8-2.0); ANION GAP 16.6 mmol/L (8-16); CALCIUM 8.1 mg/dL (8.4-10.2); CREATININE, SERUM 1.06 mg/dL (0.72-1.25); POTASSIUM 3.6 mmol/L (3.5-5.1)
[2021-09-11 06:11] LABS: CREATINE KINASE MB 7.2 ng/mL (0-5.0)
[2021-09-11] MEDS: BUSPIRONE HCL 5 MG TAB PO SCH ×4 (09:06→20:34)
[2021-09-11] MEDS: TERAZOSIN HCL 1 MG CAP PO SCH (09:07)
[2021-09-11] MEDS: CLOPIDOGREL BISULFATE 75 MG TAB PO SCH (09:08)
[2021-09-11] MEDS: ATENOLOL 50 MG TAB PO SCH (09:08)
[2021-09-11] MEDS: FAMOTIDINE 20 MG TAB PO SCH (09:08)
[2021-09-11] MEDS: GABAPENTIN 300 MG CAP PO SCH ×3 (09:08→20:34)
[2021-09-11] MEDS: ENALAPRIL MALEATE 5 MG TAB PO SCH (09:09)
[2021-09-11] MEDS: SERTRALINE HCL 100 MG TAB PO SCH (09:09)
[2021-09-11] MEDS: ROPINIROLE HCL 1 MG TAB PO SCH (20:34)
[2021-09-12] VITALS (8 sets, daily range): BP systolic 149–172; BP diastolic 83–87
[2021-09-12] MEDS: ONDANSETRON HCL INJ 2MG/ML 2ML 2 MG/ML VIAL IV PRN (02:40)
[2021-09-12] MEDS: SODIUM CHLORIDE 0.9% 1000ML 1,000 ML IV SCH ×4 (02:40→22:00)
[2021-09-12] MEDS ORDERED: PHENYLEPH/SHARK OIL/MO/PETROL 30 GM OINT RC PRN (05:00)
[2021-09-12 06:30] LABS: ALBUMIN 3.5 g/dL (3.5-5.0); ALBUMIN/GLOBULIN RATIO 1.1 (0.8-2.0); ANION GAP 18.4 mmol/L (8-16); CALCIUM 8.2 mg/dL (8.4-10.2); CREATININE, SERUM 1.08 mg/dL (0.72-1.25); POTASSIUM 3.4 mmol/L (3.5-5.1)
[2021-09-12] MEDS: HYDROCODONE/APAP 10MG-325MG TAB PO PRN ×3 (06:42→14:14)
[2021-09-12] MEDS ORDERED: ONDANSETRON HCL 4 MG ORAL DISINTEGRATING TAB PO PRN (06:45)
[2021-09-12] MEDS: BUSPIRONE HCL 5 MG TAB PO SCH ×4 (08:43→21:02)
[2021-09-12] MEDS: GABAPENTIN 300 MG CAP PO SCH ×3 (08:44→21:02)
[2021-09-12] MEDS: FAMOTIDINE 20 MG TAB PO SCH (08:44)
[2021-09-12] MEDS: CLOPIDOGREL BISULFATE 75 MG TAB PO SCH (08:44)
[2021-09-12] MEDS: TERAZOSIN HCL 1 MG CAP PO SCH (08:44)
[2021-09-12] MEDS: ENALAPRIL MALEATE 5 MG TAB PO SCH (08:45)
[2021-09-12] MEDS: ATENOLOL 50 MG TAB PO SCH (08:45)
[2021-09-12] MEDS: SERTRALINE HCL 100 MG TAB PO SCH (08:45)
[2021-09-12] MEDS: BACITRACIN ZINC 15 GM OINT TOP SCH (18:08)
[2021-09-12] MEDS: ROPINIROLE HCL 1 MG TAB PO SCH (21:02)
[2021-09-13 00:48] VITALS: BP 174/92
[2021-09-13 03:50] VITALS: BP 173/94
[2021-09-13] MEDS: HYDROCODONE/APAP 10MG-325MG TAB PO PRN ×3 (04:39→18:07)
[2021-09-13 05:35] LABS: BASOPHILS % 0.6 % (0.0-1.0); EOSINOPHILS # (AUTO) 0.3 (0.0-0.4); EOSINOPHILS % 6.7 % (0.0-6.0); HEMATOCRIT 34.7 % (38.2-49.6); HEMOGLOBIN 11.7 g/dL (14.0-18.0); LYMPHOCYTES % 20.3 % (18.0-39.1); MEAN CORPUSCULAR HEMOGLOBIN 29.5 pg (28-32); MEAN CORPUSCULAR HGB CONC 33.7 g/dL (31-35); MEAN CORPUSCULAR VOLUME 87.4 fL (81-99); MONOCYTES # (AUTO) 0.4 (0.2-0.8); NEUTROPHILS % 63.2 % (38.7-80.0); PLATELET COUNT 161 x10e3/uL (140-360); RED BLOOD COUNT 3.97 x10e6/uL (4.3-5.7); RED CELL DISTRIBUTION WIDTH 13.4 % (11.7-14.4)
[2021-09-13 06:06] LABS: ALBUMIN 3.4 g/dL (3.5-5.0); ALBUMIN/GLOBULIN RATIO 1.3 (0.8-2.0); ANION GAP 15.2 mmol/L (8-16); CREATININE, SERUM 1.01 mg/dL (0.72-1.25); MAGNESIUM 1.4 MG/DL (1.3-2.1); POTASSIUM 3.2 mmol/L (3.5-5.1)
[2021-09-13 08:00] VITALS: BP_SYST 163; BP_SYST 164; BP_DIAS 81; BP_DIAS 84
[2021-09-13] MEDS: BUSPIRONE HCL 5 MG TAB PO SCH ×4 (09:00→21:00)
[2021-09-13] MEDS: GABAPENTIN 300 MG CAP PO SCH ×3 (10:14→21:00)
[2021-09-13] MEDS: TERAZOSIN HCL 1 MG CAP PO SCH (10:14)
[2021-09-13] MEDS: FAMOTIDINE 20 MG TAB PO SCH (10:14)
[2021-09-13] MEDS: ATENOLOL 50 MG TAB PO SCH (10:15)
[2021-09-13] MEDS: SERTRALINE HCL 100 MG TAB PO SCH (10:15)
[2021-09-13] MEDS: ENALAPRIL MALEATE 5 MG TAB PO SCH (10:15)
[2021-09-13] MEDS: CLOPIDOGREL BISULFATE 75 MG TAB PO SCH (10:15)
[2021-09-13 12:00] VITALS: BP 156/87
[2021-09-13 16:00] VITALS: BP 155/92
[2021-09-13 19:38] VITALS: BP 156/91
[2021-09-13] MEDS: ROPINIROLE HCL 1 MG TAB PO SCH (21:00)
[2021-09-14] VITALS (10 sets, daily range): BP systolic 144–177; BP diastolic 87–99
[2021-09-14] MEDS: BACITRACIN ZINC 15 GM OINT TOP SCH ×2 (03:00→21:00)
[2021-09-14] MEDS ORDERED: POTASSIUM CHLORIDE 10MEQ EA PO ONE (06:00)
[2021-09-14] MEDS: BUSPIRONE HCL 5 MG TAB PO SCH ×4 (10:06→21:00)
[2021-09-14] MEDS: SERTRALINE HCL 100 MG TAB PO SCH (10:07)
[2021-09-14] MEDS: FAMOTIDINE 20 MG TAB PO SCH (10:07)
[2021-09-14] MEDS: TERAZOSIN HCL 1 MG CAP PO SCH (10:07)
[2021-09-14] MEDS: CLOPIDOGREL BISULFATE 75 MG TAB PO SCH (10:07)
[2021-09-14] MEDS: GABAPENTIN 300 MG CAP PO SCH ×3 (10:07→21:00)
[2021-09-14] MEDS: ATENOLOL 50 MG TAB PO SCH (10:07)
[2021-09-14] MEDS: ENALAPRIL MALEATE 5 MG TAB PO SCH (10:07)
[2021-09-14] MEDS: ROPINIROLE HCL 1 MG TAB PO SCH (21:00)
[2021-09-14] MEDS: HYDROCODONE/APAP 10MG-325MG TAB PO PRN (21:20)
[2021-09-15] VITALS (7 sets, daily range): BP systolic 139–162; BP diastolic 80–94
[2021-09-15] MEDS: HYDROCODONE/APAP 10MG-325MG TAB PO PRN ×4 (03:37→22:39)
[2021-09-15] MEDS: SERTRALINE HCL 100 MG TAB PO SCH (09:22)
[2021-09-15] MEDS: CLOPIDOGREL BISULFATE 75 MG TAB PO SCH (09:22)
[2021-09-15] MEDS: TERAZOSIN HCL 1 MG CAP PO SCH (09:22)
[2021-09-15] MEDS: GABAPENTIN 300 MG CAP PO SCH ×3 (09:22→20:49)
[2021-09-15] MEDS: FAMOTIDINE 20 MG TAB PO SCH (09:23)
[2021-09-15] MEDS: BUSPIRONE HCL 5 MG TAB PO SCH ×4 (09:23→20:48)
[2021-09-15] MEDS: ENALAPRIL MALEATE 5 MG TAB PO SCH (09:23)
[2021-09-15] MEDS: ATENOLOL 50 MG TAB PO SCH (09:24)
[2021-09-15] MEDS: BACITRACIN ZINC 15 GM OINT TOP SCH (09:31)
[2021-09-15 09:37] LABS: ANION GAP 15.2 mmol/L (8-16); CALCIUM 8.3 mg/dL (8.4-10.2); CREATININE, SERUM 0.9 mg/dL (0.72-1.25); POTASSIUM 3.2 mmol/L (3.5-5.1)
[2021-09-15] MEDS ORDERED: POTASSIUM CHLORIDE 20 MEQ TAB CR PO ONE (13:31)
[2021-09-15] MEDS: ROPINIROLE HCL 1 MG TAB PO SCH (20:49)
[2021-09-16 00:38] VITALS: BP 116/64
[2021-09-16 04:00] VITALS: BP 145/75
[2021-09-16] MEDS: HYDROCODONE/APAP 10MG-325MG TAB PO PRN (04:30)
[2021-09-16 08:00] VITALS: BP 155/78
[2021-09-16 08:20] VITALS: BP 155/78
[2021-09-16] MEDS: ATENOLOL 50 MG TAB PO SCH (09:45)
[2021-09-16] MEDS: TERAZOSIN HCL 1 MG CAP PO SCH (09:45)
[2021-09-16] MEDS: CLOPIDOGREL BISULFATE 75 MG TAB PO SCH (09:45)
[2021-09-16] MEDS: BUSPIRONE HCL 5 MG TAB PO SCH (09:45)
[2021-09-16] MEDS: SERTRALINE HCL 100 MG TAB PO SCH (09:45)
[2021-09-16] MEDS: GABAPENTIN 300 MG CAP PO SCH (09:45)
[2021-09-16] MEDS: BACITRACIN ZINC 15 GM OINT TOP SCH (09:45)
[2021-09-16] MEDS: FAMOTIDINE 20 MG TAB PO SCH (09:45)
[2021-09-16] MEDS: ENALAPRIL MALEATE 5 MG TAB PO SCH (09:45)
[2021-09-16 11:30] VITALS: BP 155/78
== END 2021-09-16 14:19 | disposition home or self-care (01) | DRG 557 ==
LOC: ER 20:38 → ERHOLD 22:53 → MED/SURG 09-10 00:40 → OBSVTOIN 09-11 13:18 → MED/SURG 09-14 21:59
PROVIDERS: ADMIT Internal Medicine; ATTEND Internal Medicine
DX: M62.82 Rhabdomyolysis (principal); G92.9 Unspecified toxic encephalopathy; F11.20 Opioid dependence, uncomplicated; Y92.009 Unspecified place in unspecified non-institutional (private) residence as the place of occurrence of the external cause; G25.81 Restless legs syndrome; I10 Essential (primary) hypertension; F03.90 Unspecified dementia, unspecified severity, without behavioral disturbance, psychotic disturbance, mood disturbance, and anxiety; F41.9 Anxiety disorder, unspecified; N40.0 Benign prostatic hyperplasia without lower urinary tract symptoms; W01.198A Fall on same level from slipping, tripping and stumbling with subsequent striking against other object, initial encounter; Y93.9 Activity, unspecified; Y92.231 Patient bathroom in hospital as the place of occurrence of the external cause; E87.6 Hypokalemia; G62.9 Polyneuropathy, unspecified; Z91.81 History of falling; S00.83XA Contusion of other part of head, initial encounter; G47.33 Obstructive sleep apnea (adult) (pediatric); F32.A Depression, unspecified; M19.90 Unspecified osteoarthritis, unspecified site; E66.9 Obesity, unspecified; Z68.32 Body mass index [BMI] 32.0-32.9, adult; Z20.822 Contact with and (suspected) exposure to COVID-19; Z87.891 Personal history of nicotine dependence; Z96.653 Presence of artificial knee joint, bilateral
CPT/HCPCS: 36415; 70450; 71101; 80048; 80053; 81001; 82550; 82553; 83735; 84484; 85025; 93005; 93306; 94799; 96360; 97139; 99251; 99284; G0378; J2405; J7030; U0002